=== PATIENT | male | born 1945 | race Caucasian/White ===

== ENCOUNTER 2017-07-12 13:56 | Inpatient (IN) | payer MEDICARE, BC ==
[~2017-07-12] VITALS: Ht 182.9 cm; Wt 77.1 kg
[2017-07-12 16:39] VITALS: BP 147/70
[2017-07-12] MEDS ORDERED: ALBU8.5H2 INH (16:48)
[2017-07-12] MEDS ORDERED: METO-295 PO (16:48)
[2017-07-12] MEDS ORDERED: MONT10TA22 PO (16:48)
[2017-07-12] MEDS ORDERED: VALA100026 PO (16:48)
[2017-07-12] MEDS ORDERED: PREG75CA PO (16:48)
[2017-07-12] MEDS ORDERED: ESCI5TAB PO (16:48)
[2017-07-12] MEDS ORDERED: DOXY100C2 PO (16:48)
[2017-07-12] MEDS ORDERED: MOME13HF2 INH (16:48)
[2017-07-12] MEDS ORDERED: TRAZ-147 PO (16:48)
[2017-07-12] MEDS ORDERED: DIGO125T PO (16:48)
[2017-07-12] MEDS ORDERED: PREG300C PO (16:54)
[2017-07-12] MEDS ORDERED: ACETAMINOPHEN 325 MG TABLET PO PRN (17:00)
[2017-07-12] MEDS ORDERED: ZOLPIDEM TARTRATE 5 MG TABLET PO PRN (17:00)
[2017-07-12] MEDS ORDERED: LORAZEPAM 0.5 MG TABLET PO PRN (17:00)
[2017-07-12] MEDS ORDERED: MAGNESIUM HYDROXIDE 30 ML UDC PO PRN (17:00)
[2017-07-12] MEDS ORDERED: MAG HYDROX/AL HYDROX/SIMETH 30 ML UDC PO PRN (17:00)
--- NOTE | 2017-07-12 17:00 | NUR ---
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 AND DR ROSARIO AND AWARE OF ADMISSION.PATIENT'S RIGHT HAND BOOK GIVEN AND EXPLAINED TO PATIENT ABLE TO VERBALIZE UNDERSTANDING .START PATIENT ON Q15 MINUTES SAFETY CHECK.
[2017-07-12 20:35] VITALS: BP 116/53
[2017-07-13 07:49] LABS: ALANINE AMINOTRANSFERASE 21 U/L (12-78); ALBUMIN 2.8 g/dL (3.4-5.0); ALKALINE PHOSPHATASE 75 U/L (46-116); ASPARTATE AMINOTRANSFERASE 15 U/L (15-37); BILIRUBIN,TOTAL 0.5 mg/dL (0.2-1.0); CALCIUM, SERUM 8.7 mg/dL (8.5-10.1); CARBON DIOXIDE 30 mmol/L (21-32); CHLORIDE 101 mmol/L (98-107); CREATININE 0.9 mg/dL (0.6-1.3); GLUCOSE 111 mg/dL (74-106); POTASSIUM 3.9 mmol/L (3.5-5.1); SODIUM SERUM 136 mmol/L (136-145); TOTAL PROTEIN, SERUM 6.1 g/dL (6.4-8.2); UREA NITROGEN, BLOOD 13 mg/dL (7-18)
[2017-07-13 07:51] LABS: CHOLESTEROL 96 mg/dL (<200); HDL CHOLESTEROL 35 mg/dL (40-60); LDL 53 mg/dL (0-99); TRIGLYCERIDES 62 mg/dL (30-150)
[2017-07-13 08:00] VITALS: BP 139/61
--- NOTE | 2017-07-13 09:23 | NUR ---
RN NOTES INFORMED CHARGE NURSE REGARDING PATIENT HOME MEDS NOT RECONCILED YET. CHARGE NURSE INFORMED DR JAVIER AND SAID THAT HE WILL DO IT. WILL F/U AND WILL CONTINUE TO MONITOR PT ACCORDINGLY.
--- NOTE | 2017-07-13 11:01 | NUR ---
Initial Discharge Plan Patient lives at [address] [facility] [address], and wishes to return upon discharge. Patient stated that he lives alone and does not wish family to be contacted. Patient stated that he is in touch with his girlfriend, Tara and spoke to her just this morning. Patient stated that he needs transportation to be provided, as he does not have anyone to take him back home once he is discharged. ALEX will work to form a safe and proper discharge plan. Addendum: 07/13/17 at 1206 by IRMA JOHNSON Patient will be provided with substance use resources and referrals upon discharge.
[2017-07-13] MEDS: METOCLOPRAMIDE HCL 10 MG TABLET PO SCH ×2 (12:46→16:42)
[2017-07-13] MEDS ORDERED: PREGABALIN 25 MG CAPSULE PO ONE (13:00)
[2017-07-13] MEDS ORDERED: ALBUTEROL FS 2.5 MG/3 ML VIAL.NEB NEB PRN (13:30)
[2017-07-13] MEDS: oxyCODONE/APAP (5/325 MG) 1 UDTAB TABLET PO PRN (13:41)
--- NOTE | 2017-07-13 13:43 | NUR ---
RN NOTES PT COMPLAINED OF PAIN ON B/L TOES AND B/L FINGERS WITH PAIN SCALE OF 8/10. PRN PERCOCET 10/325MG TAB GIVEN, WILL MONITOR EFFECTIVENESS.
--- NOTE | 2017-07-13 14:38 | NUR ---
RN NOTES PT'S LYRICA 300MG X1 DOSE SUPPOSED TO BE GIVEN AT 13OO CHANGED TIME TO 1500 TODAY THEN TO CONTINUE ON LYRICA 300MG BID. EXPLAINED TO PT AND VERBALIZED UNDERSTANDING. WILL CONTINUE TO MONITOR PT.
[2017-07-13] MEDS: PREGABALIN 100 MG CAPSULE PO SCH ×2 (14:45→21:26)
[2017-07-13 16:31] VITALS: BP 119/68
--- NOTE | 2017-07-13 16:43 | NUR ---
RN NOTES PT REFUSED STANDING ORDER REGLAN 10MG P.O., STATED THAT HE'S DOESN'T FEEL ANY N & V. WILL CONTINUE TO MONITOR.
--- NOTE | 2017-07-13 19:30 | NUR ---
GPS RN NOTE, RECEIVED PATIENT AWAKE AND IN BED NO S/S OR COMPLAINTS OF PAIN AT THIS TIME. PATIENT IS DISPLAYING NO S/S OF APPARENT DISTRESS AT THIS TIME. PATIENT BREATHING IS UNLABORED WITH EQUAL RISE AND FALL OF THE CHEST. PATIENT IS ALERT AND ORIENTED X3 ON ROOM AIR WITH A SPOO2 94 %. PATIENT IS MED COMPLIANT, DEPRESSED AT TIMES, ANXIOUS, DISORGANIZED, AND NEEDS REORIENTATION. PATIENT DENIES SUICIDE IDEATIONS AND HOMICIDAL IDEATIONS AT THIS TIME. PATIENT ASSISTED WITH TURNING AND REPOSITIONING Q2HR AND PRN FOR COMFORT AND CIRCULATION. PATIENT HAS NO NEEDS AT THIS TIME. PATIENT EDUCATED ON THE USE OF THE CALL [employer]. PATIENT BED SIDE RAILS UP X 2 FOR SAFETY. PATIENT BED IS LOCKED AND LOW WILL CONTINUE TO MONITOR AND MAINTAIN SAFETY Q15 MIN WITH THE HELP OF STAFF.
[2017-07-13 20:02] VITALS: BP 133/69
--- NOTE | 2017-07-13 21:26 | NUR ---
GPS RN NOTE, PATIENT HAS A COMPLAINT OF NOT BEING ABLE TO SLEEP AND IS AMBIEN AT THIS TIME. PATIENT VITAL SIGNS ARE STABLE. GAVE AMBIEN 5MG PO HS ORDERED. WILL REASSESS FOR INSOMNIA AND I WILL CONTINUE TO MONITOR THIS PATIENT.
[2017-07-13] MEDS ORDERED: METOCLOPRAMIDE HCL 10 MG TABLET PO PRN (21:30)
[2017-07-14 08:00] VITALS: BP 145/72
[2017-07-14] MEDS: PREGABALIN 100 MG CAPSULE PO SCH (08:22)
[2017-07-14] MEDS ORDERED: FLUTICASONE/VILANTEROL 1 EACH BLST.W.DEV IH SCH (09:00)
[2017-07-14] MEDS ORDERED: MONTELUKAST SODIUM (10MG) 10 MG TABLET PO SCH (09:00)
[2017-07-14] MEDS ORDERED: VALACYCLOVIR HCL 500 MG TABLET PO SCH (09:00)
[2017-07-14] MEDS ORDERED: ESCITALOPRAM OXALATE (10 MG) 10 MG TABLET PO SCH (09:00)
[2017-07-14] MEDS: oxyCODONE/APAP (5/325 MG) 1 UDTAB TABLET PO PRN (11:10)
--- NOTE | 2017-07-14 11:15 | NUR ---
GPS/RN PATIENT REPORTS 8/10 GENERALIZED PAIN, REQUESTED PAIN MEDICATION, ADMINISTERED PERCOCET 5/325 2 TABS, WILL CONTINUE TO MONITOR.
[2017-07-14] MEDS ORDERED: DIGOXIN 0.125 MG TABLET PO SCH (13:00)
--- NOTE | 2017-07-14 15:14 | NUR ---
Discharge Note Patient will be discharged back home to [address] [place] [address] [place] [address], . Please note that patient is leaving against medical advice. The psychiatrist, Dr. Jimenes, patients nurse and psychologist social all advised patient on what it means to leave against medical advice and encouraged his voluntary stay. However, patient was adamant about leaving the hospital. Due to the fact that patient was leaving against medical advice, psychologist social was unable to secure transportation for him. merchant mill utility worker consulted with psychiatrist, nurse and her supervisor spinning for best option for patient. Patient stated that he will attempt to call his brother to pick him up and, if that did not work out, patient stated that he wished to take a bus or train to his apartment in [place], [place]. merchant mill utility worker had several conversations with patient regarding this plan. However, patient refused all alternatives and, again, asserted that he wished to leave AMA. merchant mill utility worker provided patient with the nearest [employer] train station, as well as with the phone number for taxi services. merchant mill utility worker inquired several times if patient had the financial means for this type of transportation. Patient stated that he had several credit cards, all of which work. Patient appeared to be alert and was oriented to time, place, situation and self. Patient denied suicidal and homicidal ideation at time of release from hospital. Patients insight and judgement seemed fair and memory was unimpaired. merchant mill utility worker made an aftercare medical appointment for patient to see Physician [employer] Lily Villalobos [address] [place] [id number] on August 17 at 12:40pm. merchant mill utility worker provided patient with a mental [facility] referral [facility] [address] [place] [phone] and encouraged patient to present at intake to discuss his substance use. merchant mill utility worker also encouraged patient to attend a Narcotics Anonymous Meeting at [address] [place] [phone] on Tuesday, 07/15 at 7:30pm. Patient thanked psychologist social for these referrals and resources and stated that he was interested in attending the NA meeting, as he believed it will be greatly beneficial to him. Addendum: 07/14/17 at 1559 by IRMA FARIAS SW Please note that ALEX asked patient several times to provide the contact number for his brother, but patient refused. ALEX also asked patient to call his brother to inquire if he was able to be picked up. Patient stated that his brother lives in [place] and he does not wish to burden him.
--- NOTE | 2017-07-14 15:45 | NUR ---
PATIENT IS BEING DISCHARGED AMA. BACK HOME TO [address] [place] [address] [place] [address], . PATIENT WAS EXPLAINED WHAT IT MEANS TO DISCHARGE AGAINST MEDICAL ADVICE AND WAS ENCOURAGED TO SIGN IN VOLUNTARILY BUT PATIENT WAS ADAMANT ABOUT LEAVING AMA. ALL VALUABLES AND BELONGINGS WERE RETURNED AND SIGNED FOR BY PATIENT. NO PRESCRIPTIONS INCLUDED DUE TO AMA STATUS. PATIENT DENIES SI/HI/AH UPON DISCHARGE AND STATED " I FEEL GREAT" PATIENT ADVISED THAT UPON LEAVING AMA THAT HE ASSUMES FULL RESPONSIBILITY FOR HIMSELF, VERBALIZED UNDERSTANDING. PATIENT WAS INSTRUCTED TO DIAL 911 OR GO TO NEAREST ER IN CASE OF EMERGENCY, VERBALIZED UNDERSTANDING. PATIENT [facility]FERRED [facility], [address] [place] [phone] ([phone]) PATIENT WAS ASKED SEVERAL TIMES TO PROVIDE FAMILY CONTACT INFORMATION BUT REFUSED TO PROVIDE BOTHER'S INFORMATION. PATIENT LEFT UNIT WITH PAPER CLEANER AT SIDE.
--- NOTE | 2017-07-14 15:48 | NUR ---
Per pt's request, SW faxed over medical records [from medical doctor only] to his print washer, Dr. Jacob Clark [address] [address], [place] [address] [phone] / fax number [phone]. Patient wanted to secure an earlier appointment time, as his was scheduled for June 2018 [one year follow up].
== END 2017-07-14 15:45 | disposition left against medical advice (07) | DRG 881 ==
LOC: GPS 16:00
PROVIDERS: ADMIT Psychiatry & Neurology Psychiatry
DX: F32.9 Major depressive disorder, single episode, unspecified (principal); E44.0 Moderate protein-calorie malnutrition; G62.9 Polyneuropathy, unspecified; F14.20 Cocaine dependence, uncomplicated; I48.0 Paroxysmal atrial fibrillation; R45.851 Suicidal ideations; J44.9 Chronic obstructive pulmonary disease, unspecified; I10 Essential (primary) hypertension; K21.9 Gastro-esophageal reflux disease without esophagitis; Z79.899 Other long term (current) drug therapy; Z85.51 Personal history of malignant neoplasm of bladder; Z87.891 Personal history of nicotine dependence; Z68.23 Body mass index [BMI] 23.0-23.9, adult
CPT/HCPCS: 36415; 80053-TC; 80061-TC; 80162-TC; 87081-TC; J8597